=== PATIENT | female | born 1990 | race Caucasian/White ===

== ENCOUNTER → 2016-06-27 | Outpatient (CLI) | payer BC, MEDICAID ==
--- NOTE | 2016-06-27 10:33 | REP ---
Lumbar spine series: Five views. History: Lower back pain. Findings: There is a levoconvex curve on the AP view mild in degree. Pedicles and posterior elements are intact. Lumbar vertebral body heights are preserved. Disc spaces are maintained. There is no evidence of spondylolysis or spondylolisthesis. Sacrum and SI joints are unremarkable. Impression: Mild levoconvex curvature. Otherwise negative lumbar spine radiographs. Signed by Yayo Nova MD 06/27/2016 12:24 P
== END ==
LOC: M RAD 09:36
PROVIDERS: ATTEND Nurse Practitioner Family
DX: M54.5 Low back pain (principal)